=== PATIENT | female | born 1950 | race Two or more races ===

== ENCOUNTER → 2024-09-05 | Outpatient (CLI) | payer MEDICARE, OTHER, SELFPAY ==
--- NOTE | 2024-09-05 16:56 | XR_ITS ---
Examination: PA lateral chest 2 views TECHNIQUE: Upright PA lateral chest 2 views Exam date and time: September 05, 2024 1730 hours INDICATIONS: Coughing beginning 5 days ago. FINDINGS: Pneumonia left base retrocardiac, obscuring detail left hemidiaphragm Mild prominence of ventricle Right lung clear Prominent osteopenia IMPRESSION: Left base pneumonia
== END | disposition home or self-care (01) ==
PROVIDERS: PCP Family Medicine; Referring Provider Family Medicine; Visit Provider Family Medicine
DX: J18.9 Pneumonia, unspecified organism (principal)
CPT/HCPCS: 71046